=== PATIENT | male | born 1985 | race Caucasian/White ===

== ENCOUNTER 2025-03-01 11:09 | Emergency (ER) | payer OTHER ==
[~2025-03-01] VITALS: Ht 167.6 cm; Wt 63.0 kg
[2025-03-01 11:23] VITALS: O2SAT 99
[2025-03-01] MEDS: IBUPROFEN 400MG TABLET PO ONE (12:22)
[2025-03-01] MEDS ORDERED: TOPUD MT (13:31)
[2025-03-01 13:54] VITALS: BP 133/62; PULSE 63; RESP 14; TEMP 36.7; O2SAT 100
== END 2025-03-01 13:55 | disposition home or self-care (01) ==
LOC: ER 11:09
DX: S50.12XA Contusion of left forearm, initial encounter (principal); W18.39XA Other fall on same level, initial encounter; Y93.89 Activity, other specified; Y92.89 Other specified places as the place of occurrence of the external cause; Y99.8 Other external cause status
CPT/HCPCS: 73090; 99283